=== PATIENT | female | born 1990 ===

== ENCOUNTER 2021-01-05 23:57 | Inpatient (IN) | payer OTHER ==
[~2021-01-05] VITALS: Ht 160 cm; Wt 72.3 kg
[2021-01-06] MEDS ORDERED: LACTATED RINGERS 1,000 ML IV SCH (00:30)
[2021-01-06] MEDS ORDERED: OXYTOCIN 30U/ 0.9% NaCL 500ML 500 ML IV ONE (00:30)
[2021-01-06] MEDS ORDERED: ONDANSETRON 2MG/ML, 2ML IVPush PRN (00:30)
[2021-01-06] MEDS ORDERED: FENTANYL PF 100 MCG/2ML IV PRN (00:30)
[2021-01-06] MEDS ORDERED: TERBUTALINE 1 MG/ML, 1ML IVPush PRN (00:30)
[2021-01-06] MEDS ORDERED: PLEASE ENTER HEIGHT AND WEIGHT MC SCH (00:30)
[2021-01-06] MEDS ORDERED: D5%-LACTATED RINGERS 1,000 ML IV SCH (00:30)
[2021-01-06] MEDS ORDERED: CALCIUM CARBONATE 500 MG TAB.CHEW PO PRN (00:30)
[2021-01-06] MEDS ORDERED: FENTANYL PF 100 MCG/2ML IVPush PRN (00:30)
[2021-01-06] MEDS ORDERED: TERBUTALINE 1 MG/ML, 1ML SQ PRN (00:30)
[2021-01-06] MEDS ORDERED: NEWBORN KIT ONE (00:55)
[2021-01-06] MEDS ORDERED: OXYTOCIN 30U/ 0.9% NaCL 500ML 500 ML ONE (00:56)
[2021-01-06] MEDS ORDERED: LIDOCAINE 1%, 20ML ONE (00:56)
[2021-01-06 01:08] LABS: BASOPHILS % (AUTO) 0 % (0-1); EOSINOPHILS % (AUTO) 1 % (1-7); LYMPHOCYTES % (AUTO) 25 % (22-44); MEAN CORPUSCULAR HEMOGLOBIN 31.8 pg (27.0-34.8); MEAN CORPUSCULAR HGB CONC 34.5 g/dL (32.4-35.8); MEAN PLATELET VOLUME 8.4 fL (7.4-10.4); MONOCYTES % (AUTO) 7 % (2-9); NEUTROPHILS % (AUTO) 67 % (42-75); PLATELET COUNT 104 x10^3/uL (130-400); RED BLOOD COUNT 4.27 x10^6/uL (3.82-5.3); RED CELL DISTRIBUTION WIDTH 13.2 % (9.6-15.2)
[2021-01-06] MEDS: OXYTOCIN 30U/ 0.9% NaCL 500ML 500 ML IV SCH ×3 (01:20→22:00)
[2021-01-06] MEDS ORDERED: OXYTOCIN 10 UNITS/ML, 1ML ONE (01:26)
[2021-01-06] MEDS ORDERED: IBUPROFEN 600 MG TABLET ONE (01:42)
[2021-01-06] MEDS ORDERED: MISOPROSTOL 200 MCG TABLET PR PRN (02:00)
[2021-01-06] MEDS ORDERED: METHYLERGONOVINE 0.2 MG/ML IM PRN (02:00)
[2021-01-06] MEDS ORDERED: OXYcodone/APAP 5/325MG TABLET PO PRN ×2 (02:00)
[2021-01-06] MEDS ORDERED: TRANEXAMIC ACID 100 MG/ML, 10ML IV ONE (02:00)
[2021-01-06] MEDS ORDERED: SIMETHICONE 80 MG CHEW TAB PO PRN (02:00)
[2021-01-06] MEDS ORDERED: CARBOPROST TROMETHAMINE 250 MCG/ML, 1ML IM PRN (02:00)
[2021-01-06] MEDS ORDERED: ONDANSETRON 2MG/ML, 2ML IV PRN (02:00)
[2021-01-06] MEDS ORDERED: OXYTOCIN 10 UNITS/ML, 1ML IM PRN (02:30)
[2021-01-06 03:40] VITALS: BP 119/76
[2021-01-06] MEDS: DOCUSATE 100 MG CAPSULE PO PRN (07:21)
[2021-01-06 07:30] VITALS: BP 146/88
[2021-01-06] MEDS: IBUPROFEN 800 MG TABLET PO PRN ×2 (08:19→16:13)
[2021-01-06] MEDS: PRENATAL VIT/IRON/FA 1 EACH TABLET PO SCH (08:20)
[2021-01-06 09:57] VITALS: BP 127/77
[2021-01-06 09:58] LABS: BASOPHILS % (AUTO) 0 % (0-1); EOSINOPHILS % (AUTO) 0 % (1-7); LYMPHOCYTES % (AUTO) 11 % (22-44); MEAN CORPUSCULAR HEMOGLOBIN 31.9 pg (27.0-34.8); MEAN CORPUSCULAR HGB CONC 34.4 g/dL (32.4-35.8); MEAN PLATELET VOLUME 9.3 fL (7.4-10.4); MONOCYTES % (AUTO) 6 % (2-9); NEUTROPHILS % (AUTO) 83 % (42-75); PLATELET COUNT 192 x10^3/uL (130-400); RED BLOOD COUNT 3.72 x10^6/uL (3.82-5.3); RED CELL DISTRIBUTION WIDTH 12.9 % (9.6-15.2)
[2021-01-06 14:00] VITALS: BP 129/79
[2021-01-06 18:05] VITALS: BP 130/84
[2021-01-06 20:50] VITALS: BP 111/70
[2021-01-07] MEDS: IBUPROFEN 800 MG TABLET PO PRN ×2 (00:08→08:17)
[2021-01-07] MEDS: DOCUSATE 100 MG CAPSULE PO PRN ×2 (00:08→08:16)
[2021-01-07 00:14] VITALS: BP 117/75
[2021-01-07 07:15] VITALS: BP 122/67
[2021-01-07] MEDS: PRENATAL VIT/IRON/FA 1 EACH TABLET PO SCH (08:16)
== END 2021-01-07 10:35 | disposition home or self-care (01) | DRG 807 ==
LOC: LDOP 23:57 → LDIP 01-06 00:19 → 2NW 01-06 02:56
PROVIDERS: ADMIT Obstetrics & Gynecology; ATTEND Obstetrics & Gynecology
PROC: 10E0XZZ Delivery of Products of Conception, External Approach (ICD-10-PCS; principal; 2021-01-06)
PROC: 0KQM0ZZ Repair Perineum Muscle, Open Approach (ICD-10-PCS; 2021-01-06)
DX: O70.1 Second degree perineal laceration during delivery (principal); Z37.0 Single live birth; Z20.822 Contact with and (suspected) exposure to COVID-19; Z3A.38 38 weeks gestation of pregnancy
CPT/HCPCS: 36415; 85025; 86592; 86803; 86850; 86900; 87340; 87635; 87806; G0378; G0475; J2590